=== PATIENT | female | born 2000 | race Caucasian/White ===

== ENCOUNTER → 2022-09-18 12:01 | Outpatient (CLI) | payer OTHER, SELFPAY ==
--- NOTE | 2022-09-18 12:03 | DI.US.S_ITS ---
PROCEDURE: US ABDOMEN LIMITED INDICATIONS: biliary colic, vomiting TECHNIQUE: Real-time focused scanning was performed of the abdomen, with image documentation. COMPARISON: None. FINDINGS: Liver is normal in size and echotexture. There is a 3.6 x 2.0 x 2.8 centimeter hyperechoic lesion in the anterior left hepatic lobe which likely represents hemangioma. Gallbladder is sonographically normal. No gallstones. No gallbladder wall thickening. Gallbladder wall measures 1.5 millimeters. No pericholecystic fluid. No sonographic Antoine sign. Biliary tree is nondilated. Common bile duct measures 5.7 millimeters. Pancreas is sonographically normal. IMPRESSION: Normal examination without evidence of cholelithiasis or cholecystitis. If there is continued clinical concern for cholecystitis, a nuclear medicine HIDA scan should be considered for further evaluation. Dictated by: Sandra Canales MD, PhD on 09/18/2022 at 13:08 Approved by: Sandra Canales MD, PhD on 09/18/2022 at 13:09
== END ==
PROVIDERS: Referring Provider Student in an Organized Health Care Education/Training Program; Visit Provider Student in an Organized Health Care Education/Training Program
DX: K80.50 Calculus of bile duct without cholangitis or cholecystitis without obstruction (principal); R11.2 Nausea with vomiting, unspecified
CPT/HCPCS: 76705

== ENCOUNTER → 2023-01-17 16:13 | Outpatient (CLI) | payer OTHER, SELFPAY | PROVIDERS: Referring Provider Internal Medicine; Visit Provider Internal Medicine | DX: K31.84 Gastroparesis (principal) | CPT/HCPCS: 93005; 93010 ==

== ENCOUNTER → 2023-05-13 15:35 | Outpatient (ROUT) | payer OTHER, SELFPAY | PROVIDERS: PCP Internal Medicine; Visit Provider Dermatology | DX: L02.426 Furuncle of left lower limb (principal) | CPT/HCPCS: 87070; 87075; 87077; 87186; 87205 ==

== ENCOUNTER → 2023-07-15 16:49 | Outpatient (ROUT) | payer OTHER, SELFPAY | PROVIDERS: PCP Internal Medicine; Visit Provider Dermatology | DX: L02.426 Furuncle of left lower limb (principal) | CPT/HCPCS: 87070; 87205 ==